=== PATIENT | male | born 1980 | race Caucasian/White ===

== ENCOUNTER 2018-06-09 11:35 | Emergency (ER) | payer OTHER ==
[~2018-06-09] VITALS: Ht 188 cm; Wt 88.5 kg
[2018-06-09 12:12] VITALS: BP 112/57
[2018-06-09] MEDS ORDERED: Metoclopramide 10mg/2ml Inj IVP ONE (12:30)
--- NOTE | 2018-06-09 13:21 | Emergency Room Report ---
History of Present Illness General Chief Complaint: General Complaint Source: Patient Present Illness HPI 37-year-old male with no significant past medical history here complaining of nausea and vomiting started after drinking last night. He reports he had 4 alcoholic beverages and started vomiting any of the after. Try to have oral hydration and ibuprofen earlier and could not take it in. Patient denies headache, dizziness, blurred vision, chest pain, abdominal pain, diarrhea and constipation. Denies blood in his vomit. His recent travel, drug use, smoking tobacco. Patient stable, speaks in full sentences, in mild distress Allergies: Coded Allergies: No Known Allergies (Unverified , 06/09/18) Patient History Past Medical History: see triage record Past Surgical History: unable to obtain Pertinent Family History: none Immunizations: UTD Reviewed Nursing Documentation: PMH: Agreed; PSxH: Agreed Nursing Documentation-PMH Past Medical History: No Stated History Review of Systems All Other Systems: negative except mentioned in HPI Physical Exam Vital Signs Date Time Temp Pulse Resp B/P (MAP) Pulse Ox O2 Delivery O2 Flow Rate FiO2 06/09/18 12:12 97.7 56 18 99 Room Air 06/09/18 12:12 112/57 Sp02 EP Interpretation: reviewed, normal General Appearance: normal inspection, well appearing, no apparent distress, alert Head: normocephalic, atraumatic Eyes: bilateral eye normal inspection, bilateral eye PERRL ENT: normal ENT inspection, hearing grossly normal, normal pharynx Neck: normal inspection, full range of motion, supple, no carotid bruits Respiratory: normal inspection, lungs clear, normal breath sounds, no rhonchi, no respiratory distress, no wheezing Cardiovascular #1: normal inspection, no edema, no gallop, no murmur Gastrointestinal: normal inspection, non tender, soft Genitourinary: no CVA tenderness Musculoskeletal: normal inspection, back normal, digits/nails normal Neurologic: normal inspection, alert, oriented x3 Psychiatric: normal inspection, judgement/insight normal Skin: normal inspection, normal color, no rash, normal turgor Lymphatic: normal inspection, no adenopathy Medical Decision Making PA Attestation All my diagnosis and treatment plans were reviewed ad discussed with my supervising physician Dr. Wayne Diagnostic Impression: Primary Impression: Dehydration, mild Additional Impression: Alcohol intoxication ER Course 37-year-old male with no significant past medical history here complaining of nausea and vomiting started after drinking last night. He reports he had 4 alcoholic beverages and started vomiting any of the after. Try to have oral hydration and ibuprofen earlier and could not take it in. Patient denies headache, dizziness, blurred vision, chest pain, abdominal pain, diarrhea and constipation. Denies blood in his vomit. His recent travel, drug use, smoking tobacco. Patient stable, speaks in full sentences, in mild distress Ddx considered but are not limited to: appendicitis, cholycisitis, gastritis, gasthroentritis, alcohol intoxication, dehydration Vital signs: are WNL, pt. is afebrile H&PE are most consistent with: dehydration and alcohol intoxication ORDERS: NS bolus, reglan, zofran ED INTERVENTIONS: NS bolus, reglan DISCHARGE: At this time pt. is stable for d/c to home. Will provide printed patient care instructions, and any necessary prescriptions. Care plan and follow up instructions have been discussed with the patient prior to discharge. Appears stable, with normal vital signs and does not require any further blood work as he is in no pain or distress. Follow-up with your primary care provider , keep a light diet and avoid alcohol Last Vital Signs Date Time Temp Pulse Resp B/P (MAP) Pulse Ox O2 Delivery O2 Flow Rate FiO2 06/09/18 12:32 56 18 Room Air 06/09/18 12:12 97.7 112/57 99 Disposition: HOME, SELF-CARE Condition: Stable Scripts Ondansetron (Zofran) 4 Mg Tablet 4 MG ORAL Q8H PRN for Nausea & Vomiting, #10 TAB 0 Refills Prov: Keo Montesinos 06/09/18 Referrals: [facility]ERR[facility] (PCP) Patient Instructions: Dehydration, Adult, [id number] Keo Montesinos June 09, 2018 13:21
[2018-06-09] MEDS ORDERED: ZOFRAN4 MG ORAL (13:22)
[2018-06-09 13:43] VITALS: BP 125/67
--- NOTE | 2018-06-09 13:43 | NUR ---
ER DISCHARGE NOTE: Pt was seen due to headache after drinking alcohol. Patient is cleared to be discharged per PA, pt is aox4, on room air, with stable vital signs. pt was given dc and prescription instructions, pt was able to verbalize understanding, pt id band and iv site removed without complications. pt is able to ambulate with steady gait. pt took all belongings.
== END 2018-06-09 13:43 | disposition home or self-care (01) ==
LOC: EMR 12:49
DX: F10.129 Alcohol abuse with intoxication, unspecified (principal); E86.0 Dehydration
CPT/HCPCS: 96374; 99284; J2765; J7040